=== PATIENT | male | born 1985 | race Caucasian/White ===

== ENCOUNTER 2016-09-03 14:06 | Emergency (ER) | payer MEDICAID ==
[2016-09-03 14:14] VITALS: BP 163/98
[2016-09-03] MEDS ORDERED: LORazepam 0.5 MG Tab PO ONE (15:02)
[2016-09-03] MEDS ORDERED: Ketorolac 60 MG/2 ML SDV IM ONE (15:03)
--- NOTE | 2016-09-03 15:05 | EDM.PDOC ---
ED HISTORY OF PRESENT ILLNESS - General Chief Complaint: Chest Pain Stated Complaint: PAIN ON LEFT SIDE OF RIB AREA Time Seen by Provider: 09/03/16 14:15 Source: Reports: Patient, RN notes reviewed - History of Present Illness INITIAL COMMENTS - FREE TEXT/NARRATIVE: pt arrived with pain in the left chest. He states this has been going on fo a few days but worse today. No stomach problems. It does not hurt to take a deep breath. Timing/Duration: Reports: Hour(s): Severity: moderate Location, General: Reports: chest Quality: Reports: Sharp Associated Symptoms: Reports: chest pain - Related Data Allergies/ADRs: Allergies Allergy/AdvReac Type Severity Reaction Status Date / Time amoxicillin [Amoxicillin] Allergy Intermediate Hives Verified 04/16/15 19:29 Penicillins Allergy Intermediate Hives Verified 04/16/15 19:29 chlorhexidine Allergy Itching Verified 04/16/15 19:29 povidone-iodine Allergy Rash Verified 04/16/15 19:29 [From Betadine] venom-honey bee Allergy Hives Verified 04/16/15 19:29 [bee venom (honey bee)] Home Meds: Home Meds clonazePAM [Clonazepam] 1.5 mg PO TID 03/11/14 [History] Omeprazole [Prilosec] 40 mg PO DAILY 10/05/14 [History] Buprenorphine HCl/Naloxone HCl [Suboxone 8 mg-2 mg Sl Film] 8 mg PO BID [History] Ondansetron [Take Home: Ondansetron ODT 4 MG, 2 Tab Pack] 4 mg PO ASDIRECTED PRN 09/03/16 [History] Past Medical History - Past Health History Medical/Surgical History: Denies Medical/Surgical History Other HEENT History: dental problems Other Respiratory History: right lower lobectomy. Other Gastrointestinal History: liver abcess Other Musculoskeletal History: joint pain Psychiatric History: Reports: Addiction Other Hematologic History: blood infection - Past Surgical History Other GI Surgeries/Procedures: Liver surgery Social & Family History - Tobacco Use Smoking Status *Q: Current Every Day Smoker Years of Tobacco use: 25 Packs/Tins Daily: 0.5 Used Tobacco, but Quit: Yes Month Tobacco Last Used: 3 Second Hand Smoke Exposure: No - Caffeine Use Caffeine Use: Reports: Soda - Alcohol Use Days Per Week of Alcohol Use: 0 - Recreational Drug Use Recreational Drug Use: No Recreational Drug Type: Reports: Marijuana/Hashish Recreational Drug Use Frequency: Not Used In Over 1 Year Recreational Drug Last Use: April 2013. 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 He has not fallen or injured himself. Exam Limited By: No limitations General Appearance: alert, moderate distress Ears: normal TMs Nose: normal inspection Throat/Mouth: Normal inspection Head: atraumatic Neck: normal inspection Respiratory/Chest: no respiratory distress, other (pt had alot of tenderness in the left chest wall. ) Cardiovascular: regular rate, rhythm GI/Abdominal: soft, non tender (Male) Exam: Deferred Rectal (Males) Exam: Deferred Back Exam: normal inspection Extremities: normal inspection Neurological: alert, oriented Psychiatric: normal affect Course - Vital Signs Last Recorded V/S: Last Vital Signs Temp 36.2 C 09/03/16 14:14 Pulse 98 09/03/16 14:14 Resp 16 09/03/16 14:14 BP 163/98 H 09/03/16 14:14 Pulse Ox 99 09/03/16 14:14 - Orders/Labs/Meds Orders: Active Orders 24 hr Category Date Time Status Chest 2V [CR] Stat Exams 09/03/16 14:25 Taken Labs: Laboratory Tests 09/03/16 09/03/16 09/03/16 Range/Units 14:33 14:33 14:33 WBC 8.9 (4.5-11.0) K/uL RBC 4.68 (4.30-5.90) M/uL Hgb 13.9 (12.0-15.0) g/dL Hct 42.2 (40.0-54.0) % MCV 90 (80-98) fL MCH 30 (27-31) pg MCHC 33 (32-36) % Plt Count 511 H (150-400) K/uL Neut % (Auto) 50 (36-66) % Lymph % (Auto) 40 (24-44) % [place] % (Auto) 6 (2-6) % Eos % (Auto) 2 (2-4) % Baso % (Auto) 1 (0-1) % Sodium 142 (140-148) mmol/L Potassium 3.4 L (3.6-5.2) mmol/L Chloride 103 (100-108) mmol/L Carbon Dioxide 26 (21-32) mmol/L Anion Gap 16.4 H (5.0-14.0) mmol/L BUN 16 (7-18) mg/dL Creatinine 0.9 D (0.8-1.3) mg/dL Est Cr Clr Drug Dosing 109.89 mL/min Estimated GFR (MDRD) > 60 (>60) Glucose 118 H (74-106) mg/dL Calcium 8.7 (8.5-10.1) mg/dL Total Bilirubin 0.3 D (0.2-1.0) mg/dL AST 15 (15-37) U/L ALT 35 (12-78) U/L Alkaline Phosphatase 115 (46-116) U/L Troponin I < 0.017 (0.000-0.056) ng/mL Total Protein 7.7 (6.4-8.2) g/dL Albumin 3.8 (3.4-5.0) g/dL Globulin 3.9 H (2.3-3.5) g/dL Albumin/Globulin Ratio 1.0 L (1.2-2.2) Meds: Medications Discontinued Medications Generic Name Dose Route Start Last Admin Trade Name Freq PRN Reason Stop Dose Admin Ketorolac Tromethamine 60 mg 09/03/16 15:03 09/03/16 15:20 Toradol IM 09/03/16 15:04 60 mg ONETIME ONE Administration Lorazepam 0.5 mg 09/03/16 15:02 09/03/16 15:20 Ativan PO 09/03/16 15:03 0.5 mg ONETIME ONE Administration - Re-Assessments/Exams Free Text/Narrative Re-Assessment/Exam: 09/03/16 15:21 Pt arrived with left chest wall pain He states it does not hurt when he takes a deep breath. Departure - Departure Time of Disposition: 15:28 Disposition: Home, Self-Care 01 Condition: fair Clinical Impression: Chest wall pain Referrals: PCP,None [Primary Care Provider] - Forms: ED Department Discharge Care Plan Goals: moist heat to the area, tylenol as needed for pain. tylenol 3 1 tab q6h prn or pain - My Orders Last 24 Hours: My Active Orders 09/03/16 14:25 Chest 2V [CR] Stat - Assessment/Plan Last 24 Hours: My Active Orders 09/03/16 14:25 Chest 2V [CR] Stat
[2016-09-03] MEDS ORDERED: Acetaminophen/oxyCODONE 325-5 MG Tab PO ONE (15:36)
--- NOTE | 2016-09-04 09:33 | CR ---
Chest 2V HISTORY: Left-sided chest pain. COMPARISON: 12/27/2014. FINDINGS: Stable elevation of the right hemidiaphragm present on multiple prior films. No focal infi ltrates bilaterally. Cardiac size normal. No acute congestive change or effusion. Tiny benign calcif ied granulomas left lower lobe. Impression: No acute pulmonary disease.
== END 2016-09-03 15:44 | disposition home or self-care (01) ==
LOC: JP.ED 14:06
DX: R07.89 Other chest pain (principal); F17.210 Nicotine dependence, cigarettes, uncomplicated; Z79.899 Other long term (current) drug therapy; Z88.0 Allergy status to penicillin; Z88.1 Allergy status to other antibiotic agents; Z88.8 Allergy status to other drugs, medicaments and biological substances; Z91.030 Bee allergy status
CPT/HCPCS: 36415; 71020; 80053; 84484; 85025; 96372; 99284; A9270; J1885; 93005

== ENCOUNTER 2019-01-14 12:27 | Emergency (ER) | payer MEDICAID ==
[2019-01-14 12:49] VITALS: BP 116/63; PULSE 83
[2019-01-14] MEDS ORDERED: Ketorolac 30 MG/ML SDV IVPUSH ONE (12:58)
--- NOTE | 2019-01-14 12:59 | EDM.PDOC ---
ED HPI GENERAL MEDICAL PROBLEM - General Chief Complaint: Upper Extremity Injury/Pain Stated Complaint: LEFT SHOULD IS RED AND SORE MAYBE A BUG BITE Time Seen by Provider: 01/14/19 13:00 Source of Information: Reports: Patient History Limitations: Reports: No Limitations - History of Present Illness INITIAL COMMENTS - FREE TEXT/NARRATIVE: Jama is a 33 year old male, hx of substance abuse, on Suboxone and medical marijuana, presents to the ED today with c/o left shoulder pain and redness that started two days ago. Thinks he may have gotten bit by a spider. Tylenol not helping with the pain,movement makes symptoms worse. Patient denies any systemic symptoms such as fever/chills. Onset: Gradual Duration: Day(s): (2) left shoulder Pain Score (Numeric/FACES): 3 - Related Data Allergies Allergy/AdvReac Type Severity Reaction Status Date / Time amoxicillin [Amoxicillin] Allergy Intermediate Hives Verified 01/14/19 12:42 Penicillins Allergy Intermediate Hives Verified 01/14/19 12:42 chlorhexidine Allergy Itching Verified 01/14/19 12:42 povidone-iodine Allergy Rash Verified 01/14/19 12:42 [From Betadine] venom-honey bee Allergy Hives Verified 01/14/19 12:42 [bee venom (honey bee)] Home Meds: Home Meds clonazePAM [Clonazepam] 1.5 mg PO TID 03/11/14 [History] Omeprazole [Prilosec] 40 mg PO DAILY 10/05/14 [History] Buprenorphine HCl/Naloxone HCl [Suboxone 8 mg-2 mg Sl Film] 8 mg PO BID [History] Docusate Sodium [Colace] 100 mg PO DAILY 01/14/19 [History] Medical Marijuana 1 applic INH DAILY 01/14/19 [History] Past Medical History - Past Health History Medical/Surgical History: Denies Medical/Surgical History Other HEENT History: dental problems Other Respiratory History: right lower lobectomy. Gastrointestinal History: Reports: GI Bleed, PUD Other Gastrointestinal History: liver abcess Other Musculoskeletal History: joint pain Psychiatric History: Reports: Addiction, Anxiety Other Hematologic History: blood infection - Past Surgical History Other GI Surgeries/Procedures: Liver surgery Musculoskeletal Surgical History: Reports: Shoulder Surgery Social & Family History - Tobacco Use Smoking Status *Q: Current Every Day Smoker Years of Tobacco use: 17 Packs/Tins Daily: 0.5 - Caffeine Use Caffeine Use: Reports: Tea - Recreational Drug Use Recreational Drug Use: No - Living Situation & Occupation Living situation: Reports: Single Occupation: Employed Review of Systems - Review of Systems Review Of Systems: ROS reveals no pertinent complaints other than HPI. ED EXAM, GENERAL - Physical Exam Exam: See Below Exam Limited By: No Limitations General Appearance: Alert, WD/WN, No Apparent Distress Head: Atraumatic Neck: Normal Inspection, Supple, Non-Tender Respiratory/Chest: No Respiratory Distress, Lungs Clear Cardiovascular: Normal Peripheral Pulses, Regular Rate, Rhythm Back Exam: Normal Inspection Extremities: Other (left shoulder with warmth and erythema, no axillary invovelment, spreads distally to mid upper arm, no abscess formation) Neurological: Alert, Oriented, CN II-XII Intact Psychiatric: Normal Affect, Normal Mood Skin Exam: Warm, Erythema Lymphatic: No Adenopathy Course - Vital Signs Last Recorded V/S: Last Vital Signs Temp 36.3 C 01/14/19 12:46 Pulse 83 01/14/19 12:46 Resp 18 01/14/19 12:46 BP 116/63 01/14/19 12:46 Pulse Ox 96 01/14/19 12:46 Left shoulder cellulitis. Tylenol for pain, IM Toradol given here prior to discharge, avoid PO NSAIDS secondary to GI ulcer hx. Start Keflex and take as prescribed. Follow up with PCP as needed. Return to the ED with any worsening symptoms. Patient agreeable and discharged in stable condition. - Orders/Labs/Meds Meds: Medications Discontinued Medications Generic Name Dose Route Start Last Admin Trade Name Benjamin PRN Reason Stop Dose Admin Ketorolac Tromethamine 30 mg 01/14/19 12:58 01/14/19 13:12 Toradol IVPUSH 01/14/19 12:59 Not Given ONETIME ONE Ketorolac Tromethamine 30 mg 01/14/19 13:07 01/14/19 13:12 Toradol IM 01/14/19 13:08 30 mg ONETIME ONE Administration Departure - Departure Time of Disposition: 13:15 Disposition: Home, Self-Care 01 Clinical Impression: Cellulitis Qualifiers: Site of cellulitis: extremity Site of cellulitis of extremity: upper extremity Laterality: left Qualified Code(s): L03.114 - Cellulitis of left upper limb - Discharge Information Instructions: Cellulitis, Adult Referrals: PCP,None [Primary Care Provider] - Forms: ED Department Discharge Additional Instructions: Start antibiotics today. Take Tylenol for pain as needed. Follow up in clinic as needed. Return here with worsening symptoms.
[2019-01-14] MEDS ORDERED: Ketorolac 30 MG/ML SDV IM ONE (13:07)
== END 2019-01-14 13:16 | disposition home or self-care (01) ==
LOC: JP.ED 12:27
DX: L03.114 Cellulitis of left upper limb (principal); F17.210 Nicotine dependence, cigarettes, uncomplicated; Z79.899 Other long term (current) drug therapy; Z88.1 Allergy status to other antibiotic agents; Z88.0 Allergy status to penicillin; Z91.030 Bee allergy status; Z88.8 Allergy status to other drugs, medicaments and biological substances
CPT/HCPCS: 96372; 99281; J1885

== ENCOUNTER 2022-12-05 16:07 | Emergency (ER) | payer MEDICAID ==
[2022-12-05 16:21] VITALS: BP 150/99; PULSE 98
[2022-12-05 17:57] LABS: BASOPHILS ABSOLUTE AUTO 0.05 K/uL (0.00-0.10); BASOPHILS PERCENT AUTO 0.5 % (0.1-1.3); EOSINOPHILS PERCENT AUTO 0.2 % (0.0-5.4); HEMATOCRIT 39.6 % (38.4-49.7); HEMOGLOBIN 13.4 g/dL (12.9-16.9); IMMATURE GRAN PERCENT AUTO 0.2 % (0.0-0.7); LYMPHOCYTES ABSOLUTE AUTO 2.45 K/uL (0.8-3.3); LYMPHOCYTES PERCENT AUTO 24.8 % (11.4-47.7); MEAN CORPUSCULAR HEMOGLOBIN 29.6 pg (31.6-35.5); MEAN CORPUSCULAR HGB CONC 33.8 g/dL (31.6-35.5); MEAN CORPUSCULAR VOLUME 87.4 fL (81.4-99.0); MONOCYTES ABSOLUTE AUTO 0.64 K/uL (0.20-0.90); MONOCYTES PERCENT AUTO 6.5 % (3.3-12.6); NEUTROPHILS ABSOLUTE AUTO 6.69 K/uL (1.0-7.6); NEUTROPHILS PERCENT AUTO 67.8 % (40.0-78.1); PLATELET COUNT,PLT 455 K/uL (130-375); RED BLOOD CELL COUNT 4.53 M/uL (4.14-5.76); WHITE BLOOD CELL COUNT,WBC 9.9 K/uL (3.2-11.0)
[2022-12-05 18:01] LABS: EOSINOPHILS ABSOLUTE AUTO 0.02 K/uL (0.00-0.40); IMMATURE GRAN ABSOLUTE AUTO 0.02 K/uL (0.00-0.23)
[2022-12-05 18:13] LABS: ANION GAP 9.7 mmol/L (5.0-14.0); CALCIUM 8.8 mg/dL (8.5-10.1); CREATININE 0.8 mg/dL (0.8-1.3); EST CRCL DRUG DOSING (CG) 115.9 mL/min; POTASSIUM,K 3.7 mmol/L (3.6-5.2)
== END 2022-12-05 18:58 | disposition home or self-care (01) ==
LOC: JP.ED 16:07
DX: K52.9 Noninfective gastroenteritis and colitis, unspecified (principal); F17.210 Nicotine dependence, cigarettes, uncomplicated; Z88.0 Allergy status to penicillin; Z88.8 Allergy status to other drugs, medicaments and biological substances; Z91.041 Radiographic dye allergy status; Z91.030 Bee allergy status
CPT/HCPCS: 36415; 71046; 71046-26; 80048; 85025; 99283

== ENCOUNTER 2023-02-09 07:11 | Day surgery (SDC) | payer MEDICAID ==
[~2023-02-09 07:11] MED LIST: Midazolam 1 MG/ML 2 ML SDV ONE; Propofol 200 MG/20 ML SDV ONE; fentaNYL 100 MCG/2 ML SDV ONE
[2023-02-09] MEDS ORDERED: Dextrose 5%-Lactated Ringers 1,000 ML IV SCH (08:00)
[2023-02-09] MEDS ORDERED: Propofol 200 MG/20 ML SDV ONE (09:57)
[2023-02-09 10:49] VITALS: BP 125/78; PULSE 77
== END 2023-02-09 11:20 | disposition home or self-care (01) ==
LOC: JP.SDS 07:11
PROVIDERS: ATTEND Surgery
DX: K21.00 Gastro-esophageal reflux disease with esophagitis, without bleeding (principal); K44.9 Diaphragmatic hernia without obstruction or gangrene; F90.9 Attention-deficit hyperactivity disorder, unspecified type; F41.9 Anxiety disorder, unspecified; F32.A Depression, unspecified; F11.20 Opioid dependence, uncomplicated; E66.9 Obesity, unspecified; Z88.0 Allergy status to penicillin; Z88.8 Allergy status to other drugs, medicaments and biological substances; Z87.19 Personal history of other diseases of the digestive system
CPT/HCPCS: 43239; 87081; 88305; J2250; J2704; J3010; J7121

== ENCOUNTER 2023-02-12 08:55 | Inpatient (IN) | payer MEDICAID ==
[~2023-02-12 08:55] MED LIST changes: +Dextrose 5%-Lactated Ringers 1,000 ML IV SCH; +Ertapenem 1 GM in Sodium Chloride 0.9% 100 ML IV ONE; +Meropenem 500 MG SDV ONE; -Midazolam 1 MG/ML 2 ML SDV ONE; -Propofol 200 MG/20 ML SDV ONE; +Scopolamine 1.5 MG Transdermal Patch TRDERM ONE; -fentaNYL 100 MCG/2 ML SDV ONE
[2023-02-12] MEDS ORDERED: Rocuronium 50 MG/5 ML Vial ONE (08:58)
[2023-02-12] MEDS ORDERED: Ondansetron 4 MG/2 ML SDV ONE (08:58)
[2023-02-12] MEDS ORDERED: fentaNYL 250 MCG/5 ML SDV ONE ×2 (08:58→11:25)
[2023-02-12] MEDS ORDERED: Neostigmine Methylsulfate 1 MG/ML 5 ML Syringe ONE (08:58)
[2023-02-12] MEDS ORDERED: Succinylcholine 200 MG/10 ML MDV ONE (08:58)
[2023-02-12] MEDS ORDERED: Glycopyrrolate 0.2 MG/ML 5 ML MDV ONE (08:58)
[2023-02-12] MEDS ORDERED: Dexamethasone 4 MG/ML SDV ONE (08:58)
[2023-02-12] MEDS ORDERED: Propofol 200 MG/20 ML SDV ONE (08:59)
[2023-02-12] MEDS ORDERED: Scopolamine 1.5 MG Transdermal Patch TRDERM SCH (09:00)
[2023-02-12 09:22] LABS: HEMATOCRIT 38.7 % (38.4-49.7); HEMOGLOBIN 13.2 g/dL (12.9-16.9); MEAN CORPUSCULAR HEMOGLOBIN 30.1 pg (31.6-35.5); MEAN CORPUSCULAR HGB CONC 34.1 g/dL (31.6-35.5); MEAN CORPUSCULAR VOLUME 88.2 fL (81.4-99.0); RED BLOOD CELL COUNT 4.39 M/uL (4.14-5.76)
[2023-02-12] MEDS ORDERED: Dextrose 5%-Lactated Ringers 1,000 ML IV SCH (09:30)
[2023-02-12 09:42] LABS: A/G RATIO 1.1 (1.2-2.2); ALANINE AMINOTRANSFERASE,ALT 38 U/L (12-78); ALBUMIN 3.7 g/dL (3.4-5.0); ALKALINE PHOSPHATASE 95 U/L (46-116); ASPARTATE AMNIOTRANSFERASE,AST 20 U/L (15-37); BILIRUBIN TOTAL 0.2 mg/dL (0.2-1.0); BLOOD UREA NITROGEN,BUN 10 mg/dL (7-18); CALCIUM 8.7 mg/dL (8.5-10.1); CARBON DIOXIDE,CO2 28 mmol/L (21-32); CHLORIDE,CL 103 mmol/L (100-108); CREATININE 0.8 mg/dL (0.8-1.3); ESTIMATED GFR 115 mL/min (>60); GLUCOSE RANDOM 94 mg/dL (74-106); MAGNESIUM 1.9 mg/dL (1.8-2.4); PHOSPHORUS 4.3 mg/dL (2.5-4.9); POTASSIUM,K 3.9 mmol/L (3.6-5.2); PROTEIN TOTAL,TP 7.2 g/dL (6.4-8.2); SODIUM,NA 140 mmol/L (140-148)
[2023-02-12] MEDS ORDERED: Ketamine 19 MG in Sodium Chloride 0.9% 19.81 ML IV SCH (10:00)
[2023-02-12] MEDS ORDERED: Ropivacaine 50 ML, dexAMETHasone 8 MG, EPINEPHrine 0.4 MG, Sodium Chloride 0.9% 27.6 ML NERVRT SCH ×4 (10:00)
[2023-02-12] MEDS ORDERED: Ketamine 500 MG/5 ML MDV IV SCH (10:00)
[2023-02-12] MEDS ORDERED: Ertapenem 1 GM in Sodium Chloride 0.9% 100 ML IV ONE (10:30)
[2023-02-12] MEDS ORDERED: Bupivacaine 0.5% 50 ML MDV ONE (11:29)
[2023-02-12] MEDS ORDERED: fentaNYL 50 MCG/ML SDV IVPUSH ONE (12:39)
[2023-02-12] MEDS ORDERED: hydrOXYzine HCL 100 MG/2 ML SDV IM ONE (12:40)
[2023-02-12] MEDS ORDERED: Cyclobenzaprine 10 MG Tab PO PRN (13:22)
[2023-02-12] MEDS: HYDROmorphone 1 MG/ML Syringe IV PRN ×2 (13:29→15:46)
[2023-02-12] MEDS: Dextrose 5%-Lactated Ringers 1,000 ML IV SCH ×2 (13:33→22:14)
[2023-02-12] MEDS ORDERED: Pantoprazole 40 MG Vial IVPUSH SCH (14:00)
[2023-02-12] MEDS ORDERED: traMADol 50 MG Tab PO PRN (14:00)
[2023-02-12] MEDS ORDERED: Acetaminophen 500 MG Tab PO PRN (14:00)
[2023-02-12] MEDS ORDERED: Labetalol 20 MG/4 ML Syringe IVPUSH PRN (14:00)
[2023-02-12] MEDS ORDERED: hydrOXYzine HCL 100 MG/2 ML SDV IM PRN (14:00)
[2023-02-12] MEDS ORDERED: diphenhydrAMINE 50 MG/ML SDV IVPUSH PRN (14:00)
[2023-02-12] MEDS ORDERED: Ondansetron 4 MG/2 ML SDV IVPUSH PRN (14:00)
[2023-02-12] MEDS ORDERED: HYDROmorphone 0.5 MG/0.5 ML Syringe IVPUSH PRN (14:00)
[2023-02-12] MEDS: ClonazePAM 1 MG Tab PO SCH ×2 (14:32→20:24)
[2023-02-12] MEDS ORDERED: MVI, Adult with Vitamin K 10 ML, Thiamine 200 MG, Zinc/Copper/Manganese/Selenium 1 ML i... IV SCH ×4 (16:00)
[2023-02-12] MEDS: Acetaminophen 500 MG Tab PO SCH (17:32)
[2023-02-12] MEDS: oxyCODONE 5 MG Tab PO PRN (19:05)
[2023-02-12] MEDS: Metoclopramide 10 MG/2 ML SDV IVPUSH PRN (19:05)
[2023-02-12] MEDS: Buprenorphine/Naloxone 8-2 MG Tab.SL SL SCH (20:24)
[2023-02-13] MEDS: Metoclopramide 10 MG/2 ML SDV IVPUSH PRN (02:23)
[2023-02-13] MEDS: Acetaminophen 500 MG Tab PO SCH ×2 (02:25→09:01)
[2023-02-13] MEDS ORDERED: Iopamidol 612 MG/ML 30 ML SDV PO ONE (04:11)
[2023-02-13 07:15] VITALS: BP 113/63; PULSE 62
[2023-02-13] MEDS: oxyCODONE 5 MG Tab PO PRN (07:15)
[2023-02-13] MEDS: ClonazePAM 1 MG Tab PO SCH (08:56)
[2023-02-13] MEDS: Buprenorphine/Naloxone 8-2 MG Tab.SL SL SCH (08:56)
[2023-02-13] MEDS ORDERED: Celecoxib 200 MG Cap PO SCH (09:00)
[2023-02-13] MEDS ORDERED: SCOPOLAMINE PATCH CHECK TOP SCH (09:00)
[2023-02-13] MEDS ORDERED: Pantoprazole 40 MG Tab.CR PO SCH (11:30)
== END 2023-02-13 09:50 | disposition home or self-care (01) | DRG 328 ==
LOC: JP.SDS 08:55 → JP.MS 12:30
PROVIDERS: ADMIT Surgery; ATTEND Surgery
PROC: 0DV44ZZ Restriction of Esophagogastric Junction, Percutaneous Endoscopic Approach (ICD-10-PCS; principal; 2023-02-12)
PROC: 0BUT4JZ Supplement Diaphragm with Synthetic Substitute, Percutaneous Endoscopic Approach (ICD-10-PCS; 2023-02-12)
DX: K44.9 Diaphragmatic hernia without obstruction or gangrene (principal); K21.9 Gastro-esophageal reflux disease without esophagitis; R13.10 Dysphagia, unspecified; F41.9 Anxiety disorder, unspecified; F32.A Depression, unspecified; Z98.890 Other specified postprocedural states; Z79.899 Other long term (current) drug therapy
CPT/HCPCS: 36415; 74240; 74240-26; 80053; 83735; 84100; 85027; A9270-GY; C1713; C1781; C9113; J0131; J0171; J0330; J0574-GY; J1100; J1170; J1335; J2185; J2405; J2704; J2710; J2765; J2795; J3010; J3410; J3411; J3490; J7121; Q9967

== ENCOUNTER 2023-12-03 07:36 | Day surgery (SDC) | payer MEDICAID ==
[~2023-12-03 07:36] MED LIST changes: -Dextrose 5%-Lactated Ringers 1,000 ML IV SCH; -Ertapenem 1 GM in Sodium Chloride 0.9% 100 ML IV ONE; -Meropenem 500 MG SDV ONE; +Midazolam 1 MG/ML 2 ML SDV ONE; +Propofol 200 MG/20 ML SDV ONE; -Scopolamine 1.5 MG Transdermal Patch TRDERM ONE; +fentaNYL 100 MCG/2 ML SDV ONE
[2023-12-03] MEDS: Sodium Chloride 0.9% 1,000 ML IV SCH (08:16)
[2023-12-03] MEDS ORDERED: Propofol 200 MG/20 ML SDV ONE (08:59)
[2023-12-03 10:05] VITALS: BP 129/75; PULSE 54
== END 2023-12-03 10:19 | disposition home or self-care (01) ==
LOC: JP.SDS 07:36
PROVIDERS: ATTEND Surgery
DX: K21.9 Gastro-esophageal reflux disease without esophagitis (principal); K22.89 Other specified disease of esophagus; E66.9 Obesity, unspecified
CPT/HCPCS: 00731; 43239; J2250; J2704; J3010; J7030

== ENCOUNTER → 2023-12-24 | Day surgery (SDC) | payer MEDICAID ==
[~2023-12-24] MED LIST changes: +Bupivacaine 0.5% 50 ML MDV ONE; +Dexamethasone 4 MG/ML SDV ONE; +Glycopyrrolate 0.2 MG/ML 5 ML MDV ONE; +Lidocaine 1% with EPINEPHrine 1:100,000 50 ML MDV ONE; -Midazolam 1 MG/ML 2 ML SDV ONE; +Neostigmine Methylsulfate 10 MG/10 ML MDV ONE; +Ondansetron 4 MG/2 ML SDV ONE; +Rocuronium 50 MG/5 ML Vial ONE; +Succinylcholine 200 MG/10 ML MDV ONE; +Sugammadex Sodium 200 MG/2 ML VIAL IV ONE; +droPERidol 5 MG/2 ML SDV ONE; +fentaNYL 250 MCG/5 ML SDV ONE
[2023-12-24] MEDS: Ropivacaine 50 ML, dexAMETHasone 8 MG, EPINEPHrine 0.4 MG, Sodium Chloride 0.9% 27.6 ML NERVRT SCH (08:15)
[2023-12-24] MEDS: Lidocaine 1% with EPINEPHrine 1:100,000 50 ML MDV INJECT ONE ×2 (08:20)
[2023-12-24] MEDS: Bupivacaine 0.5% 50 ML MDV INJECT ONE ×2 (08:20)
[2023-12-24] MEDS: Acetaminophen/HYDROcodone 325-5 MG Tab PO PRN (10:30)
[2023-12-24] MEDS: Indocyanine Green 25 MG SDV IV ONE (16:22)
[2023-12-24] MEDS: Clindamycin in 0.9 % Sod Chlor 600 MG in Premix Bag 1 BAG IV ONE (16:24)
[2023-12-24] MEDS: Sodium Chloride 0.9% 1,000 ML IV SCH (16:24)
[2023-12-24] MEDS: metroNIDAZOLE/Normal Saline 500 MG in Premix Bag 1 BAG IV ONE (16:24)
== END ==
LOC: JP.SDS 06:16
PROVIDERS: ATTEND Surgery
DX: K81.1 Chronic cholecystitis (principal); F41.1 Generalized anxiety disorder; K21.9 Gastro-esophageal reflux disease without esophagitis; Z79.899 Other long term (current) drug therapy; Z88.0 Allergy status to penicillin; Z91.041 Radiographic dye allergy status
CPT/HCPCS: 00790; 47562; 88304; A9270; J0171; J0330; J0665; J1100; J1596; J1790; J1836; J2405; J2704; J2710; J2795; J3010; J3490; J7030